=== PATIENT | female | born 1985 | race Caucasian/White ===

== ENCOUNTER 2022-09-11 21:48 | Emergency (ER) | payer MEDICAID ==
[~2022-09-11] VITALS: Ht 162.6 cm; Wt 86.2 kg
[2022-09-11 22:59] VITALS: BP 134/90
--- NOTE | 2022-09-11 23:08 | NUR ---
PT TAKEN TO BED 11
--- NOTE | 2022-09-11 23:20 | NUR ---
PT C/O LEFT PAIN AND SWELLING, DENIES ANY TRAUMA, TENDER TO TOUCH WITH SLIGHT BRUSING, +PMSC.
[2022-09-12] MEDS ORDERED: NAPR-54 PO (00:34)
[2022-09-12] MEDS ORDERED: CEPH-588 PO (00:34)
[2022-09-12 00:50] VITALS: BP 132/74
--- NOTE | 2022-09-12 01:00 | NUR ---
Patient discharged with v/s stable. Written and verbal after care instructions given and explained. Patient alert, oriented and verbalized understanding of instructions. Ambulatory with steady gait. All questions addressed prior to discharge. ID band removed. Patient advised to follow up with PMD. Rx SENT TO PHARMACY given. Patient educated on indication of medication including possible reaction and side effects. Opportunity to ask questions provided and answered.
== END 2022-09-12 01:00 | disposition home or self-care (01) ==
LOC: MED 21:48
DX: L03.116 Cellulitis of left lower limb (principal); Z79.1 Long term (current) use of non-steroidal anti-inflammatories (NSAID); Z79.2 Long term (current) use of antibiotics
CPT/HCPCS: 73610; 99283; Q0092